=== PATIENT | male | born 1995 | race African-American/Black ===

== ENCOUNTER → 2020-10-22 13:15 | Outpatient (CLI) | payer OTHER, SELFPAY ==
--- NOTE | ~2020-10-22 | XR_ITS ---
EXAMINATION: XR wrist RT min 3V INDICATION: Right wrist pain TECHNIQUE: Four views of the right wrist are obtained. COMPARISON: None available FINDINGS: There is no fracture, dislocation, or subluxation. The bones, soft tissues, and joint space s are normal. IMPRESSION: 1. No acute osseous abnormality. Reviewed, dictated and finalized at location A.
== END ==
PROVIDERS: PCP Physician Assistant; Visit Provider Physician Assistant
DX: M25.531 Pain in right wrist (principal)
CPT/HCPCS: 73110

== ENCOUNTER 2022-01-20 08:52 | Emergency (ER) | payer OTHER, SELFPAY ==
--- NOTE | ~2022-01-20 | XR_ITS ---
XR foot RT min 3V 01/20/2022 09:23 Indication: Right foot pain Procedure: 2 views right foot Comparison: No prior studies for comparison. Findings: No fracture, subluxation or dislocation. Lisfranc joint intact. No focal soft tissue abnorm ality. No foreign bodies. Impression: 1: No acute fracture. Reviewed, dictated and finalized at location B. Impression: 1: No acute fracture.
[2022-01-20 08:56] VITALS: BP 130/89; PULSE 68; RESP 18; O2SAT 96
--- NOTE | 2022-01-20 09:18 | ED.LOWEXIN ---
HPI - Extremity Injury (Lower) General Chief Complaint: Extremity Injury, Lower Stated Complaint: right foot injury Time Seen by Provider: 01/20/22 08:55 History of Present Illness HPI Narrative: Patient is a healthy 26-year-old male here for evaluation of right-sided heel pain for the past day. Patient states the pain came on during a flag football game. No obvious injury, states that his pain began suddenly while he was running. He was able to finish out the game but states since then he has had difficulty bearing weight on the heel. He has been walking on his toes since the pain. He has not attempted any medication for his pain. He denies any numbness or tingling in the foot, difficulty moving the foot, pain in his knee or hip. No further injury sustained in the accident. Related Data Allergies Allergy/AdvReac Type Severity Reaction Status Date / Time No Known Allergies Allergy Verified 01/20/22 09:05 Review of Systems Review of Systems: Gen.: Denies fevers or chills Eyes: Denies eye pain or visual change ENT: Denies congestion Respiratory: Denies shortness of breath or cough CV: Denies chest pain or palpitations GI: Denies abdominal pain nausea, emesis or diarrhea denies burning, urgency, frequency or hematuria Musculoskeletal: Reports right foot pain. Neuro: Denies numbness, tingling, weakness or focal weakness Skin: Denies rash Except as documented, all other systems reviewed and negative Exam Narrative: Gen: Alert, oriented, no acute distress Eyes: EOMI, no icterus Pulm: Respirations even and unlabored, symmetric thorax expansion, no audible stridor or visible cyanosis CV: 2+ DP and PT pulses. Brisk capillary refill in foot. GI: No distension, no voluntary/involuntary guarding Neuro: AOx4, moves all extremities without apparent difficulty or weakness, follows commands MSK: No bony tenderness to palpation to calcaneus, midfoot or forefoot. Full range of motion in foot, 5 out of 5 strength with plantar and dorsiflexion. Sensation intact throughout foot. Skin: No jaundice, no visible bruising, rashes, lesions or wounds on exposed skin Psych: Normal mood/affect, insight/judgement good, adequate fund of knowledge, recent/remote memory intact Course Vital Signs Vital signs: Vital Signs Pulse Rate 68 01/20/22 08:56 Respiratory Rate 18 01/20/22 08:56 Blood Pressure 130/89 01/20/22 08:56 Pulse Oximetry 96 01/20/22 08:56 Oxygen Delivery Room Air 01/20/22 08:56 Pulse Rate 72 01/20/22 09:45 Respiratory Rate 18 01/20/22 09:45 Blood Pressure 134/69 01/20/22 09:45 Pulse Oximetry 98 01/20/22 09:45 Oxygen Delivery Room Air 01/20/22 08:56 MDM - Extremity Injury (Lower) MDM Narrative Medical decision making narrative: 26-year-old male here for evaluation of foot pain after a football game yesterday. He is nontoxic-appearing and has no bony tenderness on exam, compartments are soft, strong DP and PT pulses. Plain films in the ED are negative. He has no known trauma to the area so doubt calcaneal fracture. Likely plantar fasciitis or other ligamentous sprain. He will be discharged home to follow-up with his primary care provider. Did discuss return precautions and he voiced understanding. Discharge Plan Discharge Clinical Impression: Heel pain Patient Disposition: Home, Self-Care Condition: Stable Instructions: Antibiotic Form, Metatarsalgia (DC) Additional Instructions: Your x-rays are negative in the ED. This may be plantar fasciitis, or possibly a sprain of the ligaments in your foot that will resolve with compression, rest, ice and elevation. Alternate between Tylenol and ibuprofen. You can take 1000mg of Tylenol every 6 hours and 800 mg Motrin/ibuprofen every 8 hours. Return if you develop numbness, tingling, you cannot move the foot, foot becomes red and swollen. Follow-up/Referrals: Yessica,PHOENIX Saba [Primary Care Provider] -
[2022-01-20 09:45] VITALS: BP 134/69; PULSE 72; RESP 18; O2SAT 98
== END 2022-01-20 10:07 | disposition home or self-care (01) ==
PROVIDERS: Emergency Provider Emergency Medicine; PCP Physician Assistant
DX: M79.671 Pain in right foot (principal)
CPT/HCPCS: 73630; 99283